=== PATIENT | male | born 1975 | race Caucasian/White ===

== ENCOUNTER 2017-05-30 02:06 | Emergency (ER) | payer BC ==
--- NOTE | 2017-05-30 03:23 | EDM.PDOC ---
ED HPI GENERAL MEDICAL PROBLEM - General Chief Complaint: Laceration Stated Complaint: head laceration Time Seen by Provider: 05/30/17 02:15 Source of Information: Reports: Patient History Limitations: Reports: Intoxication - History of Present Illness INITIAL COMMENTS - FREE TEXT/NARRATIVE: Patient says he fell at home. Has head laceration/swelling on right side. Uncertain if he had LOC. Uncertain as to where and how he fell. Admits to drinking/ETOH dependency. Has issues with chronic neck pain and says drinking is only way to improve the pain. Neck hurts a bit more than usual. He is up walking and ambulates easily. Denies any neuro changes or other injuries. Right Middle Head Pain Score (Numeric/FACES): 4 - Related Data Allergies Allergy/AdvReac Type Severity Reaction Status Date / Time Penicillins Allergy Rash Verified 05/30/17 02:08 Home Meds: Home Meds Sertraline [Zoloft] 50 mg PO DAILY 05/30/17 [History] Past Medical History - Past Health History Medical/Surgical History: Denies Medical/Surgical History Cardiovascular History: Reports: Hypertension Other Cardiovascular History: not treated, pt reports he is boderline Musculoskeletal History: Reports: Back Pain, Chronic, Neck Pain, Chronic Psychiatric History: Reports: Addiction, Anxiety Social & Family History - Tobacco Use Smoking Status *Q: Unknown Ever Smoked Packs/Tins Daily: 1 Second Hand Smoke Exposure: No - Caffeine Use Caffeine Use: Reports: None - Alcohol Use Days Per Week of Alcohol Use: 7 Number of Drinks Per Day: 1 (admits to being alcoholic/drinking to medicate chronic pain. Thinks he would have withdrawal symptoms if he stopped. ) Total Drinks Per Week: 7 - Recreational Drug Use Recreational Drug Use: No ED ROS GENERAL - Review of Systems Review Of Systems: See Below Constitutional: Reports: No Symptoms HEENT: Reports: Ear Pain (right ear sore from fall). Denies: Dental Pain, Ear Discharge, Eye Discharge, Eye Pain, Nosebleed, Nose Pain, Sinus Problem, Throat Pain, Throat Swelling, Vertigo, Vision Change Respiratory: Reports: No Symptoms Cardiovascular: Reports: No Symptoms. Denies: Chest Pain GI/Abdominal: Reports: No Symptoms. Denies: Abdominal Pain, Nausea, Vomiting Musculoskeletal: Reports: Neck Pain (chronic but worse since fall) Skin: Reports: Other (Swelling/laceration right scalp) Neurological: Reports: Headache. Denies: Confusion, Dizziness, Numbness, Paresthesia, Seizure, Trouble Speaking, Difficulty Walking, Weakness, Change in Speech, Gait Disturbance Psychiatric: Reports: No Symptoms ED EXAM, SKIN/RASH Exam: See Below Exam Limited By: No Limitations General Appearance: Alert, WD/WN, No Apparent Distress Eye Exam: Bilateral Eye: EOMI, Normal Inspection, PERRL Ears: Normal External Exam, Normal Canal, Hearing Grossly Normal Nose: Normal Inspection. No: No Blood, Nasal Drainage Throat/Mouth: Normal Lips, Normal Voice, No Airway Compromise Head: Facial Swelling (right side of scalp and top of head), Other (significant amount of swelling/hematoma formation right superior scalp. ). No: Sinus Tenderness Neck: Other (patient noted to be moving neck left/right upon arrival and says it is normal ROM for him. Diffuse tenderness with palpation bilaterally and posteriorly with palpation of neck. No specific focal tenderness. ) Respiratory/Chest: No Respiratory Distress, Lungs Clear, Normal Breath Sounds, No Accessory Muscle Use, Chest Non-Tender Cardiovascular: Normal Peripheral Pulses, Regular Rate, Rhythm, No Murmur GI/Abdominal: Soft, Non-Tender (Male) Exam: Deferred Rectal (Males) Exam: Deferred Back Exam: Normal Inspection Extremities: Normal Range of Motion, Non-Tender, Normal Capillary Refill Neurological: Alert, Oriented, No Motor/Sensory Deficits Psychiatric: Normal Affect, Normal Mood Skin: Warm, Dry, Other (laceration top of head on right side) Associated features: Tenderness, [place] ED SKIN PROCEDURES - Laceration/Wound Repair Right Head Lac/Wound length In cm: 6 Appearance: Subcutaneous, Linear, Clean Skin Prep: Saline Exploration/Debridement/Repair: Wound Explored, No Foreign Material Found Closed with: [place] # of Sutures: 7 Sterile Dressing Applied: None Tetanus Status Addressed: Yes Complications: No Course - Vital Signs Last Recorded V/S: Last Vital Signs Temp 37.1 C 05/30/17 02:27 Pulse 85 05/30/17 02:27 Resp 16 05/30/17 02:27 BP 158/100 H 05/30/17 02:27 Pulse Ox 99 05/30/17 02:27 - Orders/Labs/Meds Orders: Active Orders 24 hr Category Date Time Status Cervical Spine wo Cont [CT] Stat Exams 05/30/17 02:15 Taken Head wo Cont [CT] Stat Exams 05/30/17 02:15 Taken COMPREHENSIVE METABOLIC PN,CMP [CHEM] Stat Lab 05/30/17 02:16 Ordered DRUG SCREEN, URINE [URCHEM] Stat Lab 05/30/17 02:16 Ordered ETOH [ETHANOL BLOOD MEDICAL] [CHEM] Stat Lab 05/30/17 02:16 Ordered UA W/MICROSCOPIC [URIN] Stat Lab 05/30/17 02:45 Results Labs: Laboratory Tests 05/30/17 05/30/17 Range/Units 02:45 03:05 WBC 8.4 (4.0-10.2) K/uL RBC 5.00 (4.33-5.41) M/uL Hgb 16.0 (13.1-16.8) g/dL Hct 45.4 (39.0-49.0) % MCV 90.8 (84.0-98.0) fL MCH 32.0 (28.2-33.3) pg MCHC 35.2 (31.7-36.0) g/dL RDW 12.6 (11.2-14.1) % Plt Count 157 (150-350) K/uL Neut % (Auto) 82.3 H (45.0-80.0) % Lymph % (Auto) 12.6 (10.0-50.0) % [place] % (Auto) 4.4 (2.0-14.0) % Eos % (Auto) 0.5 (0.0-5.0) % Baso % (Auto) 0.2 (0.0-2.0) % Neut # (Auto) 6.94 (1.40-7.00) K/uL Lymph # (Auto) 1.06 (0.50-3.50) K/uL [place] # (Auto) 0.37 (0.00-1.00) K/uL Eos # (Auto) 0.04 (0.00-0.50) K/uL Baso # (Auto) 0.02 (0.00-0.20) K/uL Urine Color Yellow Urine Appearance Clear Urine pH 5.0 (5.0-9.0) Ur Specific [place] <= 1.005 (1.005-1.030) Urine Protein Negative (NEGATIVE) mg/dL Urine Glucose (UA) Negative (NEGATIVE) mg/dL Urine Ketones Negative (NEGATIVE) mg/dL Urine Occult Blood Trace-lysed H (NEGATIVE) Urine Nitrite Negative (NEGATIVE) Urine Bilirubin Negative (NEGATIVE) Urine Urobilinogen 0.2 (0.2-1.0) E.U./dL Ur Leukocyte Esterase Negative (NEGATIVE) - Radiology Interpretation CT Results Date: 05/30/17 CT Results Time: 03:03 (C4 fracture in two places. Noted to have a few pieces of gravel retained in head laceration) - Re-Assessments/Exams Free Text/Narrative Re-Assessment/Exam: 05/30/17 03:31 Patient found to have C4 fracture superior facet L side as well s corner front anterior column. Also noted to have have a few pieces of retained gravel within the head laceration even though area head been aggressively scrubbed prior to closure. MRI/Neurosurgery consult required. Patient transferred to [facility] for continued workup. Immediately placed in [facility] once results obtained. [facility] made aware of retained gravel within wound. ETOH 0.25 Elevated LFTs Departure - Departure Time of Disposition: 03:34 Disposition: DC/Tfer to Acute Hospital 02 Condition: Good Clinical Impression: Elevated LFTs C4 cervical fracture Qualifiers: Encounter type: initial encounter Fracture type: closed Fracture morphology: unspecified fracture morphology Fracture alignment: nondisplaced Qualified Code( s): S12.301A - Unspecified nondisplaced fracture of fourth cervical vertebra, initial encounter for closed fracture EtOH dependence Qualifiers: Substance use status: with intoxication Complication of substance-induced condition: with unspecified complication Qualified Code(s): F10.229 - Alcohol dependence with intoxication, unspecified Laceration of scalp Qualifiers: Encounter type: initial encounter Qualified Code(s): S01.01XA - Laceration without foreign body of scalp, initial encounter Head injury Qualifiers: Encounter type: initial encounter Qualified Code(s): S09.90XA - Unspecified injury of head, initial encounter - Discharge Information Forms: ED Department Discharge - My Orders Last 24 Hours: My Active Orders 05/30/17 02:15 Cervical Spine wo Cont [CT] Stat Head wo Cont [CT] Stat 05/30/17 02:16 COMPREHENSIVE METABOLIC PN,CMP [CHEM] Stat DRUG SCREEN, URINE [URCHEM] Stat ETOH [ETHANOL BLOOD MEDICAL] [CHEM] Stat 05/30/17 02:45 UA W/MICROSCOPIC [URIN] Stat - Assessment/Plan Last 24 Hours: My Active Orders 05/30/17 02:15 Cervical Spine wo Cont [CT] Stat Head wo Cont [CT] Stat 05/30/17 02:16 COMPREHENSIVE METABOLIC PN,CMP [CHEM] Stat DRUG SCREEN, URINE [URCHEM] Stat ETOH [ETHANOL BLOOD MEDICAL] [CHEM] Stat 05/30/17 02:45 UA W/MICROSCOPIC [URIN] Stat
[2017-05-30 03:27] LABS: CHLORIDE,CL 96 mmol/L (98-107); SODIUM,NA 134 mmol/L (136-145)
[2017-05-30] MEDS ORDERED: Diphtheria,Pertussis(Acell),Tetanus Vaccine 0.5 ML SDV IM ONE (03:34)
[2017-05-30 03:36] VITALS: BP 143/85
[2017-05-30] MEDS ORDERED: Sodium Chloride 0.9% 1,000 ML IV ONE (03:37)
[2017-05-30] MEDS ORDERED: LORazepam 2 MG/ML MDV IVPUSH ONE (03:38)
== END 2017-05-30 04:20 ==
LOC: LL.ED 02:06
PROC: 0HQ0XZZ Repair Scalp Skin, External Approach (ICD-10-PCS; principal; 2017-05-30)
DX: S01.01XA Laceration without foreign body of scalp, initial encounter (principal); S12.301A Unspecified nondisplaced fracture of fourth cervical vertebra, initial encounter for closed fracture; W19.XXXA Unspecified fall, initial encounter; Y92.029 Unspecified place in mobile home as the place of occurrence of the external cause; F10.229 Alcohol dependence with intoxication, unspecified; F41.9 Anxiety disorder, unspecified; I10 Essential (primary) hypertension; Z88.0 Allergy status to penicillin; Z79.899 Other long term (current) drug therapy
CPT/HCPCS: 12002; 36415; 70450; 72125; 80053; 80305; 81001; 85025; 90471; 90715; 96374; 99285; G0480; J2060; J7030

== ENCOUNTER → 2019-10-14 | Outpatient (CLI) | payer BC | LOC: LL.MRI 07:43 | PROVIDERS: ATTEND Physician Assistant | DX: S12.301 Unspecified nondisplaced fracture of fourth cervical vertebra (principal); M47.812 Spondylosis without myelopathy or radiculopathy, cervical region; M48.02 Spinal stenosis, cervical region; X58.XXXS Exposure to other specified factors, sequela | CPT/HCPCS: 72141 ==

== ENCOUNTER 2020-07-18 04:27 | Emergency (ER) | payer BC, OTHER ==
[2020-07-18 04:54] LABS: CHLORIDE,CL 96 mmol/L (98-107); SODIUM,NA 133 mmol/L (136-145)
[2020-07-18] MEDS ORDERED: Sodium Chloride 0.9% 1,000 ML IV ONE (05:18)
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
[2020-07-18] MEDS ORDERED: Morphine 10 MG/ML SDV ONE ×2 (05:45→05:47)
== END 2020-07-18 05:50 ==
LOC: LL.ED 04:27
DX: S06.5X9A Traumatic subdural hemorrhage with loss of consciousness of unspecified duration, initial encounter (principal); S06.6X9A Traumatic subarachnoid hemorrhage with loss of consciousness of unspecified duration, initial encounter; S01.81XA Laceration without foreign body of other part of head, initial encounter; S40.022A Contusion of left upper arm, initial encounter; S40.021A Contusion of right upper arm, initial encounter; S80.11XA Contusion of right lower leg, initial encounter; S80.12XA Contusion of left lower leg, initial encounter; M54.42 Lumbago with sciatica, left side; F10.129 Alcohol abuse with intoxication, unspecified; I10 Essential (primary) hypertension; F41.9 Anxiety disorder, unspecified; F17.200 Nicotine dependence, unspecified, uncomplicated; Z88.0 Allergy status to penicillin; Z79.899 Other long term (current) drug therapy; V89.2XXA Person injured in unspecified motor-vehicle accident, traffic, initial encounter
CPT/HCPCS: 36415; 70450; 72125; 80053; 80307; 83605; 85025; 96361; 96374; 99285; J2270

== ENCOUNTER 2020-07-27 07:05 | Emergency (ER) | payer BC ==
[2020-07-27] MEDS ORDERED: HYDROmorphone 1 MG/ML Syringe IVPUSH ONE (07:48)
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
[2020-07-27 09:03] VITALS: PULSE 71
[2020-07-27 09:04] VITALS: BP 155/92
== END 2020-07-27 08:47 ==
LOC: LL.ED 07:05
DX: S32.402A Unspecified fracture of left acetabulum, initial encounter for closed fracture (principal); F17.210 Nicotine dependence, cigarettes, uncomplicated; F41.9 Anxiety disorder, unspecified; I10 Essential (primary) hypertension; Z79.899 Other long term (current) drug therapy; Z88.0 Allergy status to penicillin; Z88.5 Allergy status to narcotic agent; V89.2XXA Person injured in unspecified motor-vehicle accident, traffic, initial encounter
CPT/HCPCS: 96374; 99284-25; J1170

== ENCOUNTER 2022-04-27 10:59 | Emergency (ER) | payer BC ==
[2022-04-27] MEDS ORDERED: GI Cocktail Oral Solution 30 ML PO ONE (11:08)
[2022-04-27 11:43] VITALS: PULSE 74
[2022-04-27 11:45] LABS: ANION GAP 8.3 meq/L (7-15); CHLORIDE,CL 102 mmol/L (98-107); SODIUM,NA 140 mmol/L (136-145)
[2022-04-27 11:48] LABS: ESTIMATED GFR > 60 mL/min
[2022-04-27] MEDS ORDERED: Pantoprazole 40 MG Tab.CR PO ONE (12:11)
[2022-04-27 12:46] VITALS: BP 152/89
== END 2022-04-27 13:00 | disposition home or self-care (01) ==
LOC: LL.ED 10:59
DX: R10.13 Epigastric pain (principal); I10 Essential (primary) hypertension; F17.210 Nicotine dependence, cigarettes, uncomplicated; Z88.0 Allergy status to penicillin; Z88.8 Allergy status to other drugs, medicaments and biological substances; Z79.899 Other long term (current) drug therapy
CPT/HCPCS: 36415; 74022; 80053; 80307; 81003; 82150; 83690; 83735; 84484; 85025; 93005; 93010; 99284; 99284-25; A9270-GY

== ENCOUNTER 2024-04-16 13:51 | Emergency (ER) | payer OTHER, BC ==
[2024-04-16 14:17] VITALS: BP 149/104; PULSE 74
== END 2024-04-16 15:45 | disposition home or self-care (01) ==
LOC: LL.ED 13:51
DX: R07.81 Pleurodynia (principal); I10 Essential (primary) hypertension; Z79.899 Other long term (current) drug therapy; Z88.6 Allergy status to analgesic agent; Z88.0 Allergy status to penicillin; W17.89XA Other fall from one level to another, initial encounter; W22.8XXA Striking against or struck by other objects, initial encounter
CPT/HCPCS: 71101-LT; 99283